=== PATIENT | female | born 1950 | race Caucasian/White ===

== ENCOUNTER 2020-04-02 12:16 | Inpatient (IN) ==
[2020-04-02] MEDS ORDERED: NS 0.9% 1000 ml BAG 1,000 ML IV ONE (15:44)
[2020-04-02 15:47] LABS: ABS Lymphocytes 0.5 10^3/ul (1.0-4.8); ABS Monocytes 0.5 10^3/ul (0-0.8); ABS Neutrophils 3.1 10^3/ul (1.5-7.7); Hematocrit 39 % (35-47); Hemoglobin 13.2 g/dL (12.0-16.0); Mean Corpuscular HGB Conc 34 g/dL (31-36); Mean Corpuscular Hemoglobin 31 pg (27-31); Mean Corpuscular Volume 91 fL (80-97); Mean Platelet Volume 8.3 fL (7.4-10.4); Nucleated Red Blood Cells % 0.1; Platelet Count 223 10^3/uL (150-450); Red Blood Count 4.26 10^6 /uL (3.70-4.87); Red Cell Distribution Width 13 % (10-15); White Blood Count 4.1 10^3/uL (3.5-10.8)
[2020-04-02 16:10] LABS: Troponin I 0.01 ng/mL (<0.03)
[2020-04-02 16:11] LABS: ALT 28 U/L (7-52); AST 41 U/L (13-39); Albumin 3.8 g/dL (3.2-5.2); Albumin/Globulin Ratio 1.3 (1-3); Alkaline Phosphatase 107 U/L (34-104); Anion Gap 12 mmol/L (2-11); BUN/Creatinine Ratio 17.5 (8-20); Blood Urea Nitrogen 11 mg/dL (6-24); CO2 Carbon Dioxide 23 mmol/L (22-32); Calcium 9.1 mg/dL (8.6-10.3); Chloride 95 mmol/L (101-111); EGFR African American 113.4 (>60); EGFR Non-African American 93.7 (>60); Globulin 2.9 g/dL (2-4); Glucose 99 mg/dL (70-100); Potassium 3.5 mmol/L (3.5-5.0); Sodium 130 mmol/L (135-145); Total Protein 6.7 g/dL (6.4-8.9)
[2020-04-02] MEDS ORDERED: Diltiazem IV push/loading dose 5 MG/ML 5 ML vial (25 mg) IV SLOW PU ONE (16:11)
[2020-04-02] MEDS ORDERED: Potassium Chlor 20 meq TAB.ER PO ONE (16:13)
[2020-04-02 16:41] LABS: Influenza A Molecular Negative (Negative); Influenza B Molecular Negative (Negative)
[2020-04-02] MEDS ORDERED: Diltiazem (ADVAN VIAL) 100 MG/100 ML ADDV.BAG IV SCH ×2 (17:00)
[2020-04-02 17:49] LABS: Activated Partial Thrombo Time 29.9 seconds (26.0-38.0); INR 1.11 (0.82-1.09)
[2020-04-02 18:45] LABS: TSH Ultra Thyroid Stim Horm 0.93 mcIU/mL (0.34-5.60)
[2020-04-02 19:07] LABS: Alcohol, S < 10 mg/dL (<10)
[2020-04-02] MEDS ORDERED: NS 0.9% w/ 20 Meq KCL 1000 ml 1,000 ML IV SCH (20:00)
[2020-04-02] MEDS ORDERED: cefTRIAXone 1 gm/50 mL NS BAG 1 GM/50 ML BAG IVPB SCH (21:00)
[2020-04-02] MEDS ORDERED: Remdesivir 5 MG/ML LIQ IV Vial 200 MG in NS 0.9% 250 ml 210 ML IV ONE (22:37)
[2020-04-02] MEDS: MOXIFLOXACIN 0.5% LEFT EYE SCH (22:55)
[2020-04-02] MEDS: KETOROLAC 0.5% RIGHT EYE SCH (22:55)
[2020-04-02] MEDS: Dexamethasone IV 6 MG in NS 0.9% 50 ML 50 ML IVPB SCH (23:27)
[2020-04-02] MEDS: Heparin 5000 UNITS/ML 1 mL VIAL SUBCUT SCH (23:34)
[2020-04-03 04:26] LABS: ABS Lymphocytes 0.5 10^3/ul (1.0-4.8); ABS Monocytes 0.2 10^3/ul (0-0.8); ABS Neutrophils 3.9 10^3/ul (1.5-7.7); Hematocrit 40 % (35-47); Hemoglobin 13.6 g/dL (12.0-16.0); Lymphocyte % 10.3 %; Mean Corpuscular HGB Conc 34 g/dL (31-36); Mean Corpuscular Hemoglobin 31 pg (27-31); Mean Corpuscular Volume 91 fL (80-97); Platelet Count 217 10^3/uL (150-450); Red Blood Count 4.42 10^6 /uL (3.70-4.87); Red Cell Distribution Width 13 % (10-15); White Blood Count 4.6 10^3/uL (3.5-10.8)
[2020-04-03] MEDS: Heparin 5000 UNITS/ML 1 mL VIAL SUBCUT SCH ×2 (04:26→15:12)
[2020-04-03 04:59] LABS: BUN/Creatinine Ratio 13.8 (8-20); Calcium 8.3 mg/dL (8.6-10.3); EGFR African American 124.7 (>60); EGFR Non-African American 103.1 (>60); Magnesium 1.9 mg/dL (1.9-2.7); Potassium 3.9 mmol/L (3.5-5.0)
[2020-04-03] MEDS ORDERED: Dexamethasone IV 4 MG/ML 5 ML VIAL (20 MG) ONE (07:19)
[2020-04-03] MEDS: KETOROLAC 0.5% RIGHT EYE SCH ×2 (08:51→21:29)
[2020-04-03] MEDS: Dexamethasone IV 6 MG in NS 0.9% 50 ML 50 ML IVPB SCH (08:51)
[2020-04-03] MEDS: MOXIFLOXACIN 0.5% LEFT EYE SCH ×3 (08:52→21:35)
[2020-04-03] MEDS ORDERED: Pneumococcal Vac 23-Polyvalent IM ONE (09:00)
[2020-04-03] MEDS ORDERED: Remdesivir 5 MG/ML LIQ IV Vial 100 MG in NS 0.9% 250 ml 230 ML IV SCH (21:00)
[2020-04-04 04:41] LABS: Urine Appearance Clear; Urine Bilirubin Negative (Negative); Urine Blood Negative (Negative); Urine Color Straw; Urine Glucose Negative (Negative); Urine Ketones Negative (Negative); Urine Nitrite Negative (Negative); Urine Protein Negative (Negative); Urine Specific Gravity 1.004 (1.010-1.030); Urine Urobilinogen Negative (Negative)
[2020-04-04 08:10] LABS: BUN/Creatinine Ratio 18.9 (8-20); Calcium 8.8 mg/dL (8.6-10.3); EGFR African American 138.4 (>60); EGFR Non-African American 114.4 (>60); Potassium 3.5 mmol/L (3.5-5.0)
[2020-04-04 08:30] LABS: ABS Lymphocytes 0.5 10^3/ul (1.0-4.8); ABS Monocytes 0.6 10^3/ul (0-0.8); ABS Neutrophils 7.3 10^3/ul (1.5-7.7); Hematocrit 35 % (35-47); Hemoglobin 12.2 g/dL (12.0-16.0); Lymphocyte % 6.4 %; Mean Corpuscular HGB Conc 35 g/dL (31-36); Mean Corpuscular Hemoglobin 31 pg (27-31); Mean Corpuscular Volume 90 fL (80-97); Mean Platelet Volume 8.5 fL (7.4-10.4); Platelet Count 254 10^3/uL (150-450); Red Blood Count 3.91 10^6 /uL (3.70-4.87); Red Cell Distribution Width 13 % (10-15); White Blood Count 8.5 10^3/uL (3.5-10.8)
[2020-04-04] MEDS ORDERED: Dexamethasone IV 4 MG/ML 5 ML VIAL (20 MG) ONE (09:23)
[2020-04-04] MEDS: NS 0.9% w/ 20 Meq KCL 1000 ml 1,000 ML IV SCH ×3 (10:03→18:34)
[2020-04-04] MEDS: KETOROLAC 0.5% RIGHT EYE SCH (10:03)
[2020-04-04] MEDS: MOXIFLOXACIN 0.5% LEFT EYE SCH (10:03)
[2020-04-04] MEDS: Dexamethasone IV 6 MG in NS 0.9% 50 ML 50 ML IVPB SCH (10:49)
[2020-04-04] MEDS ORDERED: Dexamethasone IV 6 MG in NS 0.9% 50 ML 50 ML IVPB SCH (13:00)
[2020-04-04] MEDS: CMC:Ketorolac 0.5% OPHTH (NF) 0.5 % 5 ML BTL RIGHT EYE SCH ×2 (14:08→21:01)
[2020-04-04] MEDS: Ciprofloxacin 0.3% OPTH.SOL BTL LEFT EYE SCH ×3 (14:10→21:08)
[2020-04-05] MEDS: NS 0.9% w/ 20 Meq KCL 1000 ml 1,000 ML IV SCH ×2 (00:55→09:49)
[2020-04-05 06:25] LABS: ABS Lymphocytes 0.4 10^3/ul (1.0-4.8); ABS Monocytes 0.6 10^3/ul (0-0.8); ABS Neutrophils 6.3 10^3/ul (1.5-7.7); Hematocrit 36 % (35-47); Hemoglobin 12.1 g/dL (12.0-16.0); Lymphocyte % 4.9 %; Mean Corpuscular HGB Conc 34 g/dL (31-36); Mean Corpuscular Hemoglobin 30 pg (27-31); Mean Corpuscular Volume 91 fL (80-97); Mean Platelet Volume 8.8 fL (7.4-10.4); Platelet Count 261 10^3/uL (150-450); Red Blood Count 3.97 10^6 /uL (3.70-4.87); Red Cell Distribution Width 13 % (10-15); White Blood Count 7.3 10^3/uL (3.5-10.8)
[2020-04-05 06:43] LABS: Calcium 8.5 mg/dL (8.6-10.3); EGFR Non-African American 131.4 (>60); Potassium 4.1 mmol/L (3.5-5.0)
[2020-04-05] MEDS: Ciprofloxacin 0.3% OPTH.SOL BTL LEFT EYE SCH ×3 (09:52→21:03)
[2020-04-05] MEDS: CMC:Ketorolac 0.5% OPHTH (NF) 0.5 % 5 ML BTL RIGHT EYE SCH ×2 (09:52→21:02)
[2020-04-05] MEDS ORDERED: NS 0.9% w/ 20 Meq KCL 1000 ml 1,000 ML IV SCH (14:40)
[2020-04-06 03:35] LABS: Hematocrit 38 % (35-47); Hemoglobin 13.2 g/dL (12.0-16.0); Mean Corpuscular HGB Conc 35 g/dL (31-36); Mean Corpuscular Hemoglobin 31 pg (27-31); Mean Corpuscular Volume 90 fL (80-97); Mean Platelet Volume 7.4 fL (7.4-10.4); Platelet Count 296 10^3/uL (150-450); Red Blood Count 4.21 10^6 /uL (3.70-4.87); Red Cell Distribution Width 13 % (10-15); White Blood Count 8.5 10^3/uL (3.5-10.8)
[2020-04-06 03:46] LABS: Calcium 8.3 mg/dL (8.6-10.3); Magnesium 1.7 mg/dL (1.9-2.7); Potassium 3.7 mmol/L (3.5-5.0)
[2020-04-06 03:51] LABS: BUN/Creatinine Ratio 10.6 (8-20); EGFR African American 107.4 (>60); EGFR Non-African American 88.8 (>60)
[2020-04-06 04:22] LABS: ABS Monocytes 0.9 10^3/ul (0-0.8); ABS Neutrophils 6.6 10^3/ul (1.5-7.7); Nucleated Red Blood Cells % 0.1
[2020-04-06] MEDS ORDERED: NS 0.9% 1000 ml BAG 1,000 ML IV ONE (04:24)
[2020-04-06] MEDS ORDERED: Magnesium Sulfate IV 3 GM in NS 0.9% 100 ml BAG 100 ML IVPB ONE (04:24)
[2020-04-06] MEDS: CMC:Ketorolac 0.5% OPHTH (NF) 0.5 % 5 ML BTL RIGHT EYE SCH ×2 (08:29→20:18)
[2020-04-06] MEDS: Ciprofloxacin 0.3% OPTH.SOL BTL LEFT EYE SCH ×3 (08:29→20:19)
[2020-04-06] MEDS: Remdesivir 5 MG/ML LIQ IV Vial 100 MG in NS 0.9% 250 ml 230 ML IV SCH (11:59)
[2020-04-07 07:57] LABS: ABS Basophils 0.1 10^3/ul (0-0.2); ABS Lymphocytes 0.8 10^3/ul (1.0-4.8); ABS Monocytes 0.6 10^3/ul (0-0.8); ABS Neutrophils 7.1 10^3/ul (1.5-7.7); Hematocrit 37 % (35-47); Hemoglobin 12.5 g/dL (12.0-16.0); Lymphocyte % 9.5 %; Mean Corpuscular HGB Conc 34 g/dL (31-36); Mean Corpuscular Hemoglobin 31 pg (27-31); Mean Corpuscular Volume 91 fL (80-97); Mean Platelet Volume 7.7 fL (7.4-10.4); Platelet Count 329 10^3/uL (150-450); Red Cell Distribution Width 13 % (10-15); White Blood Count 8.7 10^3/uL (3.5-10.8)
[2020-04-07 08:08] LABS: BUN/Creatinine Ratio 10.9 (8-20); Calcium 8.2 mg/dL (8.6-10.3); EGFR African American 132.6 (>60); EGFR Non-African American 109.6 (>60); Magnesium 2.2 mg/dL (1.9-2.7); Potassium 3.4 mmol/L (3.5-5.0)
[2020-04-07] MEDS: CMC:Ketorolac 0.5% OPHTH (NF) 0.5 % 5 ML BTL RIGHT EYE SCH (08:15)
[2020-04-07] MEDS: Ciprofloxacin 0.3% OPTH.SOL BTL LEFT EYE SCH ×2 (08:16→15:01)
[2020-04-07] MEDS ORDERED: Potassium Chloride LIQUID 20 MEQ/15 ML LIQUID PO ONE (09:22)
[2020-04-07 10:53] LABS: Albumin/Globulin Ratio 1.2 (1-3); Globulin 2.6 g/dL (2-4); Indirect Bilirubin 0.3 mg/dL (0.3-1.0); Total Bilirubin 0.4 mg/dL (0.2-1.0); Total Protein 5.6 g/dL (6.4-8.9)
[2020-04-07 11:53] VITALS: BP 127/92
[2020-04-07] MEDS: Remdesivir 5 MG/ML LIQ IV Vial 100 MG in NS 0.9% 250 ml 230 ML IV SCH (11:54)
[2020-04-07] MEDS ORDERED: Ondansetron ODT 4 mg TAB 4 MG TAB PO PRN (14:40)
== END 2020-04-07 17:10 | disposition home or self-care (01) | DRG 178 ==
LOC: ED 12:16 → MED 20:28
PROVIDERS: ADMIT Internal Medicine; ATTEND Internal Medicine